=== PATIENT | female | born 2000 | race Caucasian/White ===

== ENCOUNTER 2023-12-06 10:10 | Emergency (ER) | payer MEDICAID, SELFPAY ==
[2023-12-06 10:21] VITALS: BP 120/59; PULSE 68; RESP 17; TEMP 37.3; O2SAT 100; BMI 22.3
--- NOTE | 2023-12-06 10:32 | ED_ITS ---
HPI - Ear Problem General: Chief complaint: Ear Stated complaint: right ear pain Time Seen by Provider: 12/06/23 10:16 Source: patient Mode of arrival: ambulatory Limitations: no limitations History of Present Illness: 23-year-old female states she had went s wimming on Thursday and had her whole head submerged states that she had felt watering in her right ear and she been having increasing right ear pain since then. She states the pain is a 6 out of 10 and she denies any fever denies any severe drainage Associated symptoms: Reports ear or mastoid pain; Denies fever(s), headache(s) or neck pain Review of Systems Const: Denies: fever(s), chills, body aches or change in appetite ENMT: Reports: ear or mastoid pain; Denies: throat pain or dental pain Card: Denies: chest pain Resp: Denies: dyspnea GI: Denies: abdominal pain, nausea, vomiting or diarrhea Musc: Denies: neck pain or back pain Skin/Breast: Denies: rash Neuro: Denies: headache(s) Physical Exam Const: COMMON NORMALS: no acute distress, patient oriented x3 and healthy appearing HENMT: COMMON NORMALS: normocephalic and atraumatic HEAD & SCALP: normocephalic and atraumatic OTHER: Otitis externa noted to right ear canal TMs are normal bilaterally Eye: COMMON NORMALS: conjunctivae normal CONJUNCTIVA: Yes conjunctivae normal Neck/C-Spine: COMMON NORMALS: full ROM and supple Chest: COMMONS NORMALS: normal inspection of the chest Resp: COMMON NORMALS: normal respiratory effort Cardio: COMMON NORMALS: regular rate, regular rhythm and No murmurs present (Cardio) RATE: regular rate RHYTHM: regular rhythm Extremity: COMMON NORMALS: normal to inspection and full ROM Neuro: COMMON NORMALS: patient oriented x3, moves all extremities and no focal motor deficits Psych: COMMON NORMALS: mental status grossly normal, Normal thought process present and cooperative THOUGHT PROCESS: Normal thought process present Skin: COMMON NORMALS: no rashes or lesions noted and no wounds GENERAL SKIN EXAM: no rashes or lesions noted Course Vital Signs: Vital signs: Vital Signs Temperature 99.2 F 12/06/23 10:21 Pulse Rate 68 12/06/23 10:21 Respiratory Rate 17 12/06/23 10:21 Blood Pressure 120/59 12/06/23 10:21 Pulse Oximetry 100 12/06/23 10:21 Oxygen Delivery Me thod Room Air 12/06/23 10:21 MDM - Ear Medical Decision Making Patient presents here with otitis externa to right ear we will place on eardrops patient stable for discharge follow-up PCP return if worsening. Medical Records I reviewed the patient's medical records. No radiology studies performed this visit Discharge Plan Discharge Patient Disposition: Home Clinical Impression: Otitis externa Qualifiers: Otitis externa type: unspecified type Chronicity: acute Laterality: right Qualified Code(s): H60.501 - Unspecified acute noninfective otitis externa, right ear Condition: Stable Prescriptions: New ofloxacin 0.3 % drops 10 drp otic (ear) DAILY 7 Days Qty: 10 0RF Discharge Orders: Discharge ED (Routine); Ordered 12/06/23 Ordered By: Karmen Kumar Discharge Diet: Advance as tolerated Discharge Activity: Resume usual activity Patient Instructions: Swimmer's Ear (ED) Coding Level of Care Code ED Asset Protection Manager for Adalberto Lucas
== END 2023-12-06 10:36 | disposition home or self-care (01) ==
PROVIDERS: Emergency Provider Emergency Medicine
DX: H60.501 Unspecified acute noninfective otitis externa, right ear (principal)
CPT/HCPCS: 99283

== ENCOUNTER 2025-01-26 18:12 | Emergency (ER) | payer OTHER, MEDICAID, SELFPAY ==
[2025-01-26 18:15] VITALS: BP 117/85; PULSE 81; TEMP 36.7; O2SAT 98
[2025-01-26 19:54] LABS: HCG Qualitative Urine. Positive (Negative)
--- NOTE | 2025-01-26 20:21 | ED_ITS ---
HPI - Recheck/Abnormal Lab/Rx General: Chief Complaint: Recheck/Abnormal Lab/Rx Stated Complaint: To check and see if she if preg. Took test Positiv Time Seen by Provider: 01/26/25 19:12 History of Present Illness: Patient presenting to the emergency department with a positive home urine test, currently has a 6-month-old child at home, currently on oral contraceptives, last menstrual period starting December 29, no abnormal vaginal discharge bleeding or lower abdominal pain. Related Data Allergies Allergy/AdvReac Type Severity Reaction Status Date / Time latex Allergy Unknown Verified 01/26/25 18:20 Physical Exam Narrative: EXAM NARRATIVE: Gen: A&Ox4, no acute distress, nontoxic appearing HEENT: Normocephalic, atraumatic, no scleral icterus, external ears normal, moist mucous membranes Neck: Supple, full range of motion, no observable masses Lungs: No Respiratory distress, Lungs clear to auscultation bilaterally no rales, rhonchi, wheezing CV: Regular rate and rhythm, no murmur, no pitting edema to lower extremities bilaterally Abdomen: Soft, nondistended, nontender to palpation MSK: No joint swelling, FROM all 4 extremities Skin: No rashes, petechiae, lesions. Normal color per patient. Neuro: Alert and oriented, no slurred speech, sensation and strength grossly intact all 4 extremities Psych: Appropriate for situation. Course Vital Signs: Vital signs: Vital Signs Temperature 98.1 F 01/26/25 18:15 Pulse Rate 81 01/26/25 18:15 Blood Pressure 117/85 01/26/25 18:15 Pulse Oximetry 98 01/26/25 18:15 Oxygen Delivery Me thod Room Air 01/26/25 18:15 MDM - Recheck/Abnormal Lab/Rx Medical Decision Making 24-year-old female presenting with a positive home test in the setting of giving 6 months ago, last menstrual period approximately 1 month ago, on oral contraceptives. Urine here in the ED positive, no abdominal pain or abnormal bleeding to suggest emergency medical condition is present, recommend RIDE MECHANIC follow-up for further evaluation and assessment. Recommend discontinuation of the oral contraceptives and initiation of vitamins, patient instructed on avoidance of any alcohol or drugs or nicotine. Lab Data Urine hCG positive Laboratory Results HCG, Qual Positive (Negative) H 01/26/25 19:30 No radiology studies performed this visit Discharge Plan Discharge Patient Disposition: Home Clinical Impression: Positive test Condition: Stable Discharge Orders: Discharge ED (Routine); Ordered 01/26/25 Ordered By: Austin Thompson Referrals: Derian Jacobson MD [Primary Care Provider, [facility]] Patient Instructions: Patient Portal & Michell Instructions, (ED) Activity Restrictions/Additional Instructions: You were seen in the emergency department for a positive home test. 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 I recommend you return to the ED if you experience any abnormal vaginal discharge bleeding or lower abdominal pelvic or back pain. Print Language: Wallisian Coding Level of Care Code ED Applications Specialist for Adalberto Lucas
[2025-01-26 20:27] VITALS: BP 111/60; PULSE 74; O2SAT 99
== END 2025-01-26 20:28 | disposition home or self-care (01) ==
PROVIDERS: Emergency Provider Student in an Organized Health Care Education/Training Program; PCP Family Medicine
DX: Z32.01 Encounter for pregnancy test, result positive (principal)
CPT/HCPCS: 81025; 99283